=== PATIENT | female | born 2000 | race Caucasian/White ===

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

== ENCOUNTER 2020-02-15 00:35 | Inpatient (IN) | payer OTHER ==
[~2020-02-15] VITALS: Ht 170.2 cm; Wt 65.9 kg
[~2020-02-15 00:35] MED LIST changes: +CLEO300C2 PO; +PRED10TA2 PO
[2020-02-15 01:30] VITALS: BP 103/61
[2020-02-15 01:45] VITALS: BP_SYST 103; BP_SYST 124; BP_DIAS 61; BP_DIAS 70
[2020-02-15] MEDS ORDERED: MEASLES,MUMPS,RUBELLA VACCINE INJ (MMR-II) (90707) SC SCH (02:00)
[2020-02-15] MEDS ORDERED: METHYLERGONOVINE MALEATE 0.2 MG TAB PO PRN (02:00)
[2020-02-15] MEDS ORDERED: IBUPROFEN 800 MG TAB PO PRN (02:00)
[2020-02-15] MEDS ORDERED: DIBUCAINE 1% OINTMENT 30GM TOP PRN (02:00)
[2020-02-15] MEDS ORDERED: IBUPROFEN 600MG TAB PO PRN (02:00)
[2020-02-15] MEDS ORDERED: ACETAMINOPHEN TAB 650MG DOSE (2X325MG) PO PRN (02:00)
[2020-02-15] MEDS ORDERED: RHOGAM 300 MCG (1500 IU) INJ (J2790) IM SCH (02:00)
[2020-02-15] MEDS ORDERED: ACETAMINOPHEN 500 MG TAB PO PRN (02:00)
[2020-02-15] MEDS ORDERED: DOCUSATE SODIUM 100 MG CAP PO PRN (02:00)
[2020-02-15] MEDS ORDERED: OXYTOCIN INJ 10 UNITS/ML VIAL (J2590) IM ONE (02:00)
[2020-02-15 02:01] VITALS: BP 106/59
[2020-02-15 02:15] VITALS: BP 95/52
[2020-02-15 02:15] LABS: HEMATOCRIT 29.4 % (36.0-47.0); HEMOGLOBIN 9.3 g/dl (12.0-15.5); MEAN CORPUSCULAR HEMOGLOBIN 25.8 pg (27.0-33.0); MEAN CORPUSCULAR HGB CONC 31.6 g/dl (32.0-36.5); MEAN CORPUSCULAR VOLUME 81.7 fl (80.0-96.0); PLATELET COUNT, AUTOMATED 204 10^3/uL (150-450); WHITE BLOOD COUNT 17.2 10^3/uL (4.0-10.0)
[2020-02-15 02:29] VITALS: BP 113/83
[2020-02-15] MEDS: PRENATAL VITAMINS CHEWABLE TABLET PO SCH (08:22)
[2020-02-15 18:28] VITALS: BP 99/58
[2020-02-16 05:24] VITALS: BP 114/61
[2020-02-16] MEDS ORDERED: BOOSTRIX/ADACEL VACCINE (DIPHTH/PERTUSS/ACELL/TETANUS) 0.5ML SYR IM ONE (09:00)
[2020-02-16] MEDS: PRENATAL VITAMINS CHEWABLE TABLET PO SCH (09:00)
[2020-02-16] MEDS ORDERED: INFLUENZA QUADRIVALENT PF VACCINE 0.5ML SYRINGE IM ONE (09:00)
== END 2020-02-16 17:15 | disposition home or self-care (01) | DRG 807 ==
LOC: M LDI 00:35 → M OBS 03:20
PROVIDERS: ADMIT Advanced Practice Midwife; ATTEND Advanced Practice Midwife
PROC: 10E0XZZ Delivery of Products of Conception, External Approach (ICD-10-PCS; principal; 2020-02-15)
DX: O69.81X0 Labor and delivery complicated by cord around neck, without compression, not applicable or unspecified (principal); Z37.0 Single live birth; O09.31 Supervision of pregnancy with insufficient antenatal care, first trimester; O09.32 Supervision of pregnancy with insufficient antenatal care, second trimester; O09.33 Supervision of pregnancy with insufficient antenatal care, third trimester; Z3A.39 39 weeks gestation of pregnancy

== ENCOUNTER 2020-03-13 11:55 | Emergency (ER) | payer OTHER ==
[~2020-03-13] VITALS: Ht 170.2 cm; Wt 58.9 kg
[2020-03-13 13:45] VITALS: BP 109/67
--- NOTE | 2020-03-13 20:37 | ECGEPIP ---
[facility] - ED Test Date: 2020-03-13 Pat Name: JAZMYN JARQUIN Department: Room: - Gender: Female Social Worker Aide: GENTRY : 2000 Requested By: Louie Waters Order Number: [id number] Reading MD: Louie Chacon Measurements Intervals [place] Rate: 83 P: 59 ID: [id number] QRS: 38 QRSD: 87 T: 47 QT: 358 QTc: 422 Interpretive Statements SINUS RHYTHM WITH SINUS ARRHYTHMIA NSTTW ABNORMALITY(S) NO PRIORS FOR COMPARISON Electronically Signed on 03-13-2020 20:37:34 EDT by Louie Chacon
== END 2020-03-13 13:47 | disposition home or self-care (01) ==
LOC: M ED 11:55
DX: S29.011A Strain of muscle and tendon of front wall of thorax, initial encounter (principal); X58.XXXA Exposure to other specified factors, initial encounter

== ENCOUNTER 2025-03-07 13:52 | Emergency (ER) | payer OTHER ==
[~2025-03-07] VITALS: Ht 172.7 cm; Wt 50.7 kg
[2025-03-07 14:52] LABS: BASO # 0.1 10^3/uL (0.0-0.2); BASO % 0.7 % (0.0-1.0); EOS # 0.2 10^3/uL (0.0-0.5); EOS % 2.6 % (0.0-3.0); LYMPH # 2.3 10^3/uL (1.5-5.0); LYMPH % 31.0 % (24.0-44.0); MONO # 0.5 10^3/uL (0.0-0.8); MONO % 7.2 % (2.0-8.0); NEUTROPHILS # 4.3 10^3/uL (1.5-8.5); NEUTROPHILS % 58.4 % (36.0-66.0); PLATELET COUNT, AUTOMATED 234 10^3/uL (150-450)
[2025-03-07 14:53] LABS: KETONE, URINE AUTO RFX NEGATIVE (NEGATIVE); MUCUS, URINE RFX SMALL (NEGATIVE); NITRITE, URINE AUTO RFX NEGATIVE (NEGATIVE); RBC, URINE AUTO RFX 1 /HPF (0-3); SQUAM EPITHELIAL CELL UR AURFX 6 /HPF (0-6); WBC, URINE AUTO RFX 5 /HPF (0-3)
[2025-03-07 14:57] LABS: LEUKOCYTE ESTERASE UR AUTO RFX 1+ (NEGATIVE)
[2025-03-07 15:15] LABS: HCG, SERUM QUALITATIVE NEGATIVE (NEGATIVE)
[2025-03-07 15:17] LABS: ALT/SGPT 14 U/L (7.0-40); AST/SGOT 14 U/L (<34); CALCIUM LEVEL 9.4 MG/DL (8.5-10.1); CARBON DIOXIDE LEVEL 29 MMOL/L (20-31); CHLORIDE LEVEL 103 MMOL/L (98-107); CREATININE FOR GFR 0.70 MG/DL (0.55-1.30); GLOMERULAR FILTRATION RATE > 90.0 (>60); POTASSIUM SERUM 3.7 MMOL/L (3.5-5.1); SODIUM LEVEL 137 MMOL/L (136-145)
[2025-03-07 16:20] VITALS: TEMP 97.6
[2025-03-07 19:00] VITALS: BP 105/68; O2SAT 100
[2025-03-07] MEDS ORDERED: SIME1CAP4 PO (19:16)
[2025-03-07] MEDS ORDERED: MIRA3350 PO (19:16)
== END 2025-03-07 19:26 | disposition home or self-care (01) ==
LOC: M ED 13:52
DX: K59.00 Constipation, unspecified (principal); Z79.899 Other long term (current) drug therapy